=== PATIENT | female | born 1965 | race Caucasian/White ===

== ENCOUNTER → 2020-10-09 13:06 | Outpatient (CLI) | payer MEDICAID, SELFPAY ==
--- NOTE | 2020-10-09 | US_ITS ---
PROCEDURE: MM DIG MAMM BI DX W/CAD Digital Breast Tomosynthesis Included CLINICAL INDICATION: MASTODYNIA Right breast pain COMPARISON: US US BREAST RT COMPLETE from 10/09/2020 US US BREAST LT COMPLETE from 10/09/2020 TECHNIQUE: Standard CC and MLO images and 3D Tomosynthesis was obtained. R2 CAD reviewed. FINDINGS: Scattered fibroglandular tissue. The right breast has an unremarkable appearance. Right breast ultrasound: 2 mm cyst at 1 o'clock near the nipple. At 8 o'clock near the nipple there is a 3 mm area of decreased echogenicity which may be due to a complicated cyst, probably benign. At 9 o'clock near the nipple there is a 6 mm cyst. Suspicious cluster of calcifications noted in the medial aspect of the left breast central 1/3 confirmed with magnification views. Biopsy suggested. There is a benign-appearing 7 mm nodule in the lower left breast anterior 1/3 in the 7 o'clock position. In the lateral aspect of left breast a 3 mm nodular densities noted on the tomogram images probably benign. Left breast ultrasound: At 6 o'clock near the nipple there is a 7 mm cyst. There may be some minimal nodularity of the cyst inferiorly and laterally however, this is questionable. Probably benign. IMPRESSION: Suspicious cluster calcifications in the medial left breast centrally. Stereotactic biopsy suggested. Complicated cysts bilaterally. Recommend six-month sonographic follow-up BI-RAD Category: 4 Suspicious Abnormality-Biopsy Considered FOLLOW-UP: BIO Biopsy Recommended (A letter has been sent to the patient regarding results of the study.) Dictated by: Martell Blas MD 10/12/2020 10:50 Martell Blas MD in [place] 10/12/2020 10:50
== END ==
PROVIDERS: PCP Nurse Practitioner Family; Visit Provider Nurse Practitioner Family
DX: N64.4 Mastodynia (principal)
CPT/HCPCS: 76641; 77062; 77066; G0279

== ENCOUNTER → 2020-10-31 09:34 | Outpatient (CLI) | payer MEDICAID, SELFPAY ==
--- NOTE | 2020-10-31 09:39 | MM_ITS ---
PROCEDURE: MM STEREOTACTIC LOC LT MM CLIP PLACEMENT MM SURGICAL SPECIMEN CLINICAL INDICATION: LT BREAST NEOPLASM Suspicious breast calcifications FINDINGS: Limited focused H&P: Limited physical exam performed by . Lungs: Clear. Heart: Regular rate and rhythm. Mental status: Within normal limits. Informed consent was obtained prior to the procedure. TECHNIQUE: The patient was given 1 mg of Xanax, Lortab 7 point mg, and analgesia and minor sedation. Informed consent was obtained and time-out procedure performed. The patient was placed on the stereotactic table and the calcifications in the left breast at 8 o'clock central 1/3 were localized in the most appropriate projection. The left breast was prepped in the routine manner, with sterile prep and the overlying skin anesthetized. A 3 to 4 mm skin incision was performed and the 9 gauge sorus vacuum-assisted core biopsy needle was advanced to the region of the calcification. Pre- and post fire images were obtained. After adequate positioning relative to the calcifications was ensured, multiple biopsies were obtained in the region of the calcifications specifically. The core biopsies obtained were sent for specimen mammography. After the calcifications were indeed identified on the specimen mammogram, the procedure was terminated. The patient tolerated the procedure well without complications. Specimen was sent for pathologic analysis. Routine follow-up phone call to patient is to be performed as well. A tiny titanium nonferromagnetic MicroMark was positioned through the mammotome needle into the biopsy site. 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 Successful stereotactic vacuum-assisted core biopsy of the left breast calcifications. 2. Successful placement of a titanium metal MicroMark. 3. Pathology demonstrated high-grade DCIS. 4. No noted complications. SPECIMEN RADIOGRAPH: The mammographically evident calcifications from the prior study are currently evident within the Phan dish and within the specimens obtained during mammotome procedure. This is considered an adequate specimen and the procedure was terminated. IMPRESSION: Successful removal of described breast calcifications left breast at 8 o'clock central 1/3 BREAST MAMMOGRAM: Compared to the prior study, the previously noted calcification have been removed except for 1 small calcification posterior to the clip.. A small MicroMark clip was inserted into the region of the calcifications. There is evidence of soft tissue changes in the region of the biopsy was soft tissue gas and edema. 5. Adequate placement of the MicroMark clip postbiopsy. 6. Postbiopsy changes within the breast. Dictated by: Martell Blas MD 11/06/2020 14:16 Martell Blas MD in [place] 11/06/2020 14:16
== END ==
PROVIDERS: PCP Nurse Practitioner Family; Visit Provider Nurse Practitioner Family
DX: D48.62 Neoplasm of uncertain behavior of left breast (principal)
CPT/HCPCS: 19081; 76098; 77065

== ENCOUNTER → 2021-05-16 12:57 | Outpatient (CLI) | payer MEDICAID, SELFPAY ==
--- NOTE | 2021-05-16 13:06 | MM_ITS ---
PROCEDURE INFORMATION: Exam: US Left Breast, Complete MG Bilateral Diagnostic Breast Tomosynthesis Exam date and time: 05/16/2021 1:02 PM Age: 55 years old Clinical indication: Personal history of left breast cancer TECHNIQUE: Imaging protocol: Complete ultrasound of all four quadrants of the Left breast and the retroareolar regions, including ultrasound of the axilla when performed. Bilateral Diagnostic tomosynthesis and 2D mammography including computer-aided detection (CAD) when performed. Unilateral or bilateral exam. COMPARISON: 1. MG MM CLIP PLACEMENT LT 10/31/2020 11:08 AM 2. MG MM DIG MAMM BI DX W/CAD 10/09/2020 1:24 PM 3. US BREAST LT COMPLETE 10/09/2020 2:54 PM FINDINGS: MAMMOGRAPHY: The breast tissue is composed of scattered areas of fibroglandular density. There is no stellate mass, architectural distortion or suspicious microcalcifications in either breast to suggest malignancy. No significant postoperative distortion in the left breast. No skin thickening or axillary adenopathy. ULTRASOUND: Sonographic images of the left breast including the retroareolar region, all 4 quadrants and the axilla do not demonstrate any suspicious solid masses. Minimal subcentimeter cystic changes present. No architectural distortion or acoustical shadowing. No skin thickening or axillary adenopathy. IMPRESSION: No mammographic or sonographic evidence of malignancy. Annual bilateral mammographic screening is recommended unless otherwise clinically indicated. ASSESSMENT: BI-RADS Category 2: Benign
== END ==
PROVIDERS: PCP Nurse Practitioner Family; Visit Provider Internal Medicine Hematology & Oncology
DX: D05.12 Intraductal carcinoma in situ of left breast (principal)
CPT/HCPCS: 76641; 77062; 77066; G0279

== ENCOUNTER 2021-11-28 09:27 | Day surgery (SDC) | payer MEDICAID, SELFPAY ==
[2021-11-28 10:26] VITALS: BP 116/74; PULSE 86; RESP 18; TEMP 36.6; O2SAT 94; BMI 34.1
[2021-11-28 11:02] VITALS: O2SAT 97
--- NOTE | 2021-11-28 11:24 | HMH.SCOPE ---
Procedure: Date: 11/28/21 Patient Date of :: 1965 Procedure Performed:: Screening colonoscopy Indications:: Colon cancer screening Performing Provider:: Adam Good MD Referring Provider:: Kelsey Carlin Sedation:: Propofol Procedure:: After placing the patient in the left lateral decubitus position, the colonoscopy was gently inserted into the rectum and under direct visualization advanced to the cecum which was identified by transillumination in the right lower quadrant, identification of the ileocecal valve, appendiceal orifice, and cecal strap. Color, texture, mucosa, and anatomy of the colon were carefully examined with the scope. Findings:: Anal canal: normal Rectum: normal Sigmoid colon: Large 3+cm adenomatous polyp with broad base, biopsied, location tattooed Descending colon: normal without polyps or inflammatory changes Splenic flexure: normal Transverse colon: 1.5 cm adenomatous polyp, biopsied, tattooed Hepatic flexure: normal Ascending colon: normal without polyps or inflammatory changes Cecum: normal Terminal ileum: not visualized Impression: Large adenomatous polyps of transverse and sigmoid colon not suitable for endoscopic removal Specimens:: Colon polyps Recommendations:: Surgical consultation for removal Repeat colonosocopy ONE year after surgery Complications:: None Estimated blood obtained (mL): 0
[2021-11-28 11:27] VITALS: BP 122/83; PULSE 98; RESP 20; TEMP 36.2; O2SAT 92
--- NOTE | 2021-11-28 11:32 | EXP.ANES.CKL ---
[facility] Medical History (Updated 11/28/21 @ 10:20 by Sejal Anderson RN) Gallbladder disease Migraine Surgical History (Updated 11/28/21 @ 10:20 by Sejal Anderson RN) History of cholecystectomy Family History (Updated 11/28/21 @ 10:21 by Sejal Anderson RN) Father Lung cancer Family history of throat cancer Family/Other Lung cancer Other Family history of cancer Social History (Updated 11/28/21 @ 10:25 by Sejal Anderson RN) Smoking Status: Current some day smoker years smoked: 30 quit status: not considering quitting second hand exposure: No alcohol intake: never substance use type: denies use current occupational status: employed Travel in the last 8 weeks: None caffeine: Yes special debra needs: No agree to transfusion: No do you feel safe at home: Yes victim of physical abuse: No victim of emotional abuse: No victim of sexual abuse: No would you like helpful sources: No [facility] Anesthesia Checklist Patient Identification Patient Identification: Arm Band and Family Structural Data Admitted From: Direct Admit Planned Operative Procedure/s: colonoscopy Consent for Planned Operative Procedure(s) Verified: Yes Verified Documents: Surgical Consent and History and Physical NPO Status Verified Time NPO: 00:00 Additional verifications Patient : No Anesthesia Reactions: No Hx Blood Transfusions: No Blood Transfusion Reaction: No Cephalosporin Allergy: No Previous Colonoscopy: No Airway Assessment C-Spine Mobility Assessed: Yes TMJ Mobility Assessed: Yes Dentition: Edentulous Neurological Assessment Level of Consciousness: Awake, Alert, Appropriate and Follows Commands Hx Seizures: No Numbness or tingling in extremities: No Genitourinary Assessment Voided human resources consultant to O.R.: Yes Anesthesia Plan Anesthesia Risk discussed: Yes ASA Class: II Anesthesia Type: MAC
[2021-11-28 11:37] VITALS: BP 111/54; PULSE 76; RESP 18; O2SAT 94
[2021-11-28 11:47] VITALS: BP 129/77; PULSE 78; RESP 18; O2SAT 97
[2021-11-28 11:57] VITALS: BP 119/73; PULSE 77; RESP 18; O2SAT 97
== END 2021-11-28 12:00 | disposition home or self-care (01) ==
PROVIDERS: PCP Nurse Practitioner Family; Visit Provider Internal Medicine Gastroenterology
PROC: 0DJD8ZZ Inspection of Lower Intestinal Tract, Via Natural or Artificial Opening Endoscopic (ICD-10-PCS; CPT 45378; principal; 2021-11-28 10:30)
DX: Z12.11 Encounter for screening for malignant neoplasm of colon (principal); K63.5 Polyp of colon; Z72.0 Tobacco use
CPT/HCPCS: 45380; J2405

== ENCOUNTER 2022-01-31 12:31 | Day surgery (SDC) | payer MEDICAID, SELFPAY ==
[2022-01-30 09:16] VITALS: BMI 33.9
[2022-01-31 12:48] VITALS: BP 117/79; PULSE 72; RESP 18; TEMP 36.1; O2SAT 95
--- NOTE | 2022-01-31 13:36 | EXP.ANES.CKL ---
[facility] Disclaimer: The information contained in this section may have been updated after the patient was seen, as this information can be updated by other users. Medical History Gallbladder disease Hx of breast cancer Migraine Surgical History H/O tubal ligation History of cholecystectomy History of colonoscopy S/P breast lumpectomy Family History Father Lung cancer Family history of throat cancer Family/Other Lung cancer Other Family history of cancer Social History Smoking Status: Current every day smoker years smoked: 30 quit status: not considering quitting second hand exposure: No alcohol intake: never substance use type: denies use current occupational status: employed Travel in the last 8 weeks: None caffeine: Yes special debra needs: No agree to transfusion: No do you feel safe at home: Yes victim of physical abuse: No victim of emotional abuse: No victim of sexual abuse: No would you like helpful sources: No [facility] Anesthesia Checklist Patient Identification Patient Identification: Arm Band and Verbal (Name & ) Structural Data Admitted From: Home Planned Operative Procedure/s: Colonoscopy Consent for Planned Operative Procedure(s) Verified: Yes Additional verifications Anesthesia Reactions: No Hx Blood Transfusions: No Blood Transfusion Reaction: No Airway Assessment C-Spine Mobility Assessed: Yes TMJ Mobility Assessed: Yes Dentition: Edentulous Neurological Assessment Level of Consciousness: Awake Hx Seizures: No Numbness or tingling in extremities: No Anesthesia Plan Anesthesia Risk discussed: Yes Anesthesia Plan: Verified ASA Class: II Anesthesia Type: MAC
[2022-01-31 14:13] VITALS: O2SAT 95
[2022-01-31 15:05] VITALS: BP 126/71; PULSE 104; RESP 15; TEMP 36.3; O2SAT 91
--- NOTE | 2022-01-31 15:08 | HMH.SCOPE ---
Procedure: Date: 01/31/22 Patient Date of :: 1965 Procedure Performed:: Total colonoscopy to terminal ileum with polypectomy x4 using hot snare Indications:: Patient is a 56-year-old female from [place] referred by Dr. Good for colon resection for polyps.? Her primary care provider is Kelsey Carlin.? She has a history of breast cancer and has undergone radiation in [place].? Her radiation oncologist had advocated a screening colonoscopy.? Colonoscopy was performed on 11/28/2021.? There was noted to be a 15 mm adenomatous appearing polyp in the transverse colon which was biopsied and tattooed and not removed.? There was a large greater than 3 cm adenomatous polyp with a broad base in the sigmoid colon which was biopsied and not removed.? Both of these areas were tattooed.? Pathology on both lesions returned as tubular adenoma. Given the fact that the patient had residual polyps and resection would likely require extended left hemicolectomy with takedown of the splenic flexure plan was made to perform repeat colonoscopy to identify the exact location of the lesions present and attempt removal of at least the transverse colon polyp so as to limit the potential colon resection. Of note, when the patient was clinically evaluated in the office she likely had a trocar site hernia in her epigastrium as an incisional hernia which may need to be addressed at some point. Performing Provider:: Jonathan Jorgensen MD Referring Provider:: Kelsey Carlin Sedation:: MAC sedation Procedure:: Patient history was obtained and appropriate physical examination was performed. Patient's medications and allergies were reviewed. Informed consent was obtained after explaining the benefits, alternatives, and risks of the procedure including, but not limited to, bleeding, perforation, missed lesions, and adverse reaction to anesthesia medications. Patient was transported to endoscopy procedure room. Patient was connected to monitoring devices. Throughout the procedure the patient's blood pressure, pulse, and oxygen saturations were monitored continuously. Patient identification and planned procedure were verified by the staff. Patient was positioned in lateral decubitus position. Digital anorectal exam was performed. Variable stiffness Olympus colonoscope was inserted and advanced under direct visualization to the cecum. Adequacy of the colonic preparation was noted. The colonoscope was advanced a short distance into the terminal ileum. The colonoscope was then slowly withdrawn while carefully examining the color, texture, anatomy, and integrity of the mucosoa circumferentially. Within the rectum retroflexion was performed. Colonoscope was then withdrawn. Findings:: The colonoscope was advanced to the cecum and into the ileocecal valve which appeared grossly normal. Careful surveillance was carried out as the colonoscope was withdrawn. In the mid to distal transverse colon there was noted to be a sessile ridge polyp where the area was marked with Denice ink adjacent to this. This polyp was somewhat elongated and likely measured up to 15 mm. This was grasped with the hot snare in its entirety and able to be removed with hot snare. Ultimately it was retrieved with the Dodson net in its entirety intact as the colonoscope was withdrawn. The colonoscope was reinserted to this location and a small amount of additional Denice ink was injected immediately at the polypectomy site and adjacent to this a Hemoclip was deployed to mikaela the area if she needed imaging. Colonoscope was then slowly withdrawn through the left colon and the sigmoid polyp was noted at approximately 25 cm. With some manipulation of the colonoscope ultimately this was able to be grasped in its entirety at its pedunculated base with the hot snare. Hot snare polypectomy was performed. While applying suction to the polyp and the colonoscope was withdrawn retrieving the polyp intact and in its entirety. [place]
[2022-01-31 15:15] VITALS: BP 119/82; PULSE 97; RESP 17; O2SAT 95
[2022-01-31 15:25] VITALS: BP 115/72; PULSE 95; RESP 18; O2SAT 95
[2022-01-31 15:40] VITALS: BP 122/79; PULSE 90; RESP 16; O2SAT 95
--- NOTE | 2022-01-31 16:13 | SUR.PHASEII ---
pt c/o headache, informed her of not having orders, pt HERMINIA
== END 2022-01-31 15:40 | disposition home or self-care (01) ==
PROVIDERS: PCP Nurse Practitioner Family; Visit Provider Surgery
PROC: 0DJD8ZZ Inspection of Lower Intestinal Tract, Via Natural or Artificial Opening Endoscopic (ICD-10-PCS; CPT 45385; principal; 2022-01-31 13:30)
DX: D12.3 Benign neoplasm of transverse colon (principal); D12.5 Benign neoplasm of sigmoid colon; Z86.010 Personal history of colon polyps; F17.210 Nicotine dependence, cigarettes, uncomplicated
CPT/HCPCS: 45385; J2704

== ENCOUNTER → 2022-05-20 12:48 | Outpatient (CLI) | payer MEDICAID, SELFPAY ==
--- NOTE | 2022-05-20 12:54 | MM_ITS ---
PROCEDURE INFORMATION: Exam: MG Bilateral Screening 3D Mammography Exam date and time: 05/20/2022 12:55 PM Age: 56 years old Clinical indication: Screening examination; personal history of left breast cancer TECHNIQUE: Imaging protocol: Bilateral Screening tomosynthesis and 2D mammography including computer-aided detection (CAD) when performed. COMPARISON: 1. MG MM DIG MAMM BI DX W/CAD 05/16/2021 1:02 PM 2. MG MM CLIP PLACEMENT LT 10/31/2020 11:08 AM FINDINGS: MAMMOGRAPHY: Breast composition: There are scattered areas of fibroglandular density. Mass: None. Architectural distortion: None. Calcifications: No suspicious calcifications. Asymmetric density: None. Skin thickening: None. Axillary adenopathy: None. Other findings: No significant postoperative change IMPRESSION: No mammographic evidence of malignancy. Annual screening is recommended unless otherwise clinically indicated. ASSESSMENT: BI-RADS Category 1: Negative
== END ==
PROVIDERS: PCP Nurse Practitioner Family; Visit Provider Nurse Practitioner Family
DX: Z12.31 Encounter for screening mammogram for malignant neoplasm of breast (principal)
CPT/HCPCS: 77063; 77067

== ENCOUNTER → 2022-06-05 12:28 | Outpatient (CLI) | payer MEDICAID, SELFPAY ==
--- NOTE | 2022-06-05 12:33 | US_ITS ---
FINAL REPORT TECHNIQUE: Real-time grayscale and color ultrasound of the thyroid was performed. CLINICAL HISTORY: Goiter, fullness in right neck COMPARISON: None FINDINGS: The thyroid gland measures 5.3 cm on the right and 5.0 cm on the left. The isthmus measures 4 mm. The thyroid gland is somewhat enlarged. Nodules: There are numerous small nodules in the thyroid bilaterally. Right 6 x 6 x 5 mm cystic TR 1 nodule. Right 8 x 7 x 6 mm cystic and solid isoechoic TR 2 nodule. Right 9 x 10 x 6 mm hyperechoic solid TR 3 nodule. Left 8 x 6 x 7 mm cystic TR 1 nodule. IMPRESSION: Multiple small thyroid nodules with no follow-up recommended. Mildly enlarged thyroid gland, favor goiter. Reviewed, Interpreted and Dictated by Jonathan Gross III, MD Transcribed by Viola Bianchi Authenticated and . [facility]
--- NOTE | 2022-06-05 12:38 | XR_ITS ---
FINAL REPORT CLINICAL HISTORY: RT WRIST PAIN FINDINGS: Right wrist Three views were obtained. There is no acute fracture or dislocation. There are moderate degenerative changes at the radial aspect of the wrist. There is chronic calcification distal to the ulnar styloid process. IMPRESSION: Degenerative and chronic appearing findings. Reviewed, Interpreted and Dictated by Jonathan Gross III, MD Transcribed by Louann Espinoza Authenticated and [facility]
== END ==
PROVIDERS: PCP Nurse Practitioner Family; Visit Provider Nurse Practitioner Family
DX: E04.9 Nontoxic goiter, unspecified (principal); M25.531 Pain in right wrist
CPT/HCPCS: 73110; 76536

== ENCOUNTER 2022-10-18 19:12 | Emergency (ER) | payer MEDICAID, SELFPAY ==
[2022-10-18 19:30] VITALS: BP 143/90; PULSE 92; RESP 20; TEMP 36.7; O2SAT 97; BMI 34.6
[2022-10-18 19:47] LABS: UTC Strep Screen (Rapid) Negative (Negative)
--- NOTE | 2022-10-18 20:00 | EXP.UTC ---
Discharge Plan Disposition Patient Disposition: Home, Self-Care Condition: Good Prescriptions Prescriptions: New amoxicillin 500 mg capsule 500 mg PO TID 10 Days Qty: 30 0RF No Action anastrozole 1 mg tablet 1 mg PO DAILY Referrals Follow up/Referrals: Kelsey Carlin [Primary Care Provider] - See instructions Activity Restrictions/Add. Instructions Additional Instructions/Restrictions: *Monitor Temp, Over the counter Motrin or Tylenol as directed/as needed Tylenol every 4 hours and Motrin every 6 hours (as long as your family doctor has told you that you can take it) for fever or pain. and straight to ER if unable to lower temp less than 101.0 after medication given *Warm salt water gargles may help to soothe the throat *Throat Lozenges? *Warm fluids like tea with honey may help to soothe the throat? *Sleep elevated *Humidifier/Vaporizer *Your throat swab was sent for culture. Those results are typically sent to your primary care. Be sure to follow up in 2-3 days with your family doctor/primary care physician if no improvement so they can review those result and treat if necessary. If you don?t have a primary care doctor, I recommend you get one but in the mean time, you will have to return to a walk in clinic Follow up IMMEDIATELY for new or worsening symptoms or no Noticeable improvement over the next 48-72 hours. 911 for difficulty breathing or swallowing Clinical Impressions Clinical Impression: Otitis media Qualifiers: Otitis media type: unspecified Laterality: left Qualified Code(s): H66.92 - Otitis media, unspecified, left ear Instructions Patient Instructions: Middle Ear Infection, Amoxicillin Discharge ED Provider: Hattie Daugherty [facility] HPI General Stated complaint: sore throat, ear ache Mode of Arrival: Ambulatory Source of Information: Patient Limitations: No Limitations Time Seen by Provider: 10/18/22 20:00 Description of Symptoms (Recalled from Triage Doc. by RN): PATIENT C/O SORE THROAT AND EAR PAIN THAT STARTED TODAY HEENT Symptoms (Recalled from RN notes): Yes Resp Symptoms (Recalled from RN notes): No Skin Symptoms (Recalled from RN notes): No MS Symptoms (Recalled from RN notes): No Functional Status (Recalled from RN notes): WNL History of Present Illness Provider Complaint: Patient states that she has been having sore scratchy throat and pain in her left ear that has got worse today States this evening her throat is feeling better but her ear is still throbbing so she came in to get it checked Related Data Home Medications Medication Instructions Recorded Confirmed anastrozole 1 mg tablet 1 mg PO DAILY . 12/10/21 12/10/21 Previous Rx's Medication Instructions Recorded amoxicillin 500 mg capsule 500 mg PO TID 10 days #30 caps 10/18/22 Allergies Allergy/AdvReac Type Severity Reaction Status Date / Time No Known Allergies Allergy Verified 12/10/21 09:52 Worker's Comp Is this a Worker's Comp case?: No [facility] Disclaimer: The information contained in this section may have been updated after the patient was seen, as this information can be updated by other users. Medical History Gallbladder disease Hx of breast cancer Migraine Surgical History H/O tubal ligation History of cholecystectomy History of colonoscopy S/P breast lumpectomy Family History Father Lung cancer Family history of throat cancer Family/Other Lung cancer Other Family history of cancer Social History Smoking Status: Current every day smoker years smoked: 30 quit status: not considering quitting second hand exposure: No alcohol intake: never substance use type: denies use current occupational status: [employer]
[2022-10-18 20:15] VITALS: BP 143/90; PULSE 92; RESP 20; TEMP 36.7; O2SAT 97
== END 2022-10-18 20:22 | disposition home or self-care (01) ==
PROVIDERS: Emergency Provider Nurse Practitioner; PCP Nurse Practitioner Family
DX: H66.92 Otitis media, unspecified, left ear (principal); J02.9 Acute pharyngitis, unspecified; F17.210 Nicotine dependence, cigarettes, uncomplicated
CPT/HCPCS: 87880; 99204; 99212; G0463

== ENCOUNTER → 2023-01-28 14:39 | Outpatient (CLI) | payer MEDICAID, SELFPAY ==
--- NOTE | 2023-01-28 14:43 | CT_ITS ---
FINAL REPORT TECHNIQUE: Axial CT images of the chest were obtained without contrast. Low-dose protocol was utilized. This study was performed with techniques to keep radiation doses as low as reasonably achievable (ALARA). Individualized dose reduction techniques using automated exposure control or adjustment of mA and/or kV according to the patient's size were employed. CLINICAL HISTORY: H/O TOBACCO USE CURRENT SMOKER, 1 PPD X 25 YEARS COMPARISON: None FINDINGS: CT CHEST WITHOUT, LOW DOSE SCREENING CT Di Vol: 2.90 mGy DLP: 104.73 mGy*cm There is no significant mediastinal mass or adenopathy. The heart size is normal. There is no pleural or pericardial effusion. The lung windows show no suspicious mass or nodule. There are bilateral calcified granulomas. There is scarring in the lower lobes bilaterally and along the minor fissure. Limited images of the upper abdomen demonstrate no acute findings. IMPRESSION: LR Category 1: 12 month follow-up low-dose chest CT is recommended. Reviewed, Interpreted and Dictated by Juancho Castro MD Transcribed by Viola Bianchi Authenticated and . [facility]
== END ==
PROVIDERS: PCP Nurse Practitioner Family; Visit Provider Internal Medicine
DX: F17.210 Nicotine dependence, cigarettes, uncomplicated (principal)
CPT/HCPCS: 71271

== ENCOUNTER 2023-04-28 11:17 | Outpatient (CLI) | payer MEDICAID, SELFPAY ==
[2023-04-28 11:45] LABS: Basophils # 0.1 K/mm3 (0-0.2); Basophils % 0.7 % (0.1-2.0); Eosinophils # 0.2 K/mm3 (0.0-0.4); Eosinophils % 1.9 % (0.1-12.0); Hematocrit 45.2 % (37.0-47.0); Hemoglobin 14.7 g/dL (12.2-16.2); Lymphocytes # 2.6 K/mm3 (0.7-4.5); Mean Corpuscular HGB Conc 32.6 g/dL (31.8-35.4); Mean Corpuscular Hemoglobin 31.1 pg (27.0-31.2); Mean Corpuscular Volume 95.3 fl (81-99); Mean Platelet Volume 8.6 fl (7.4-10.4); Monocytes # 0.5 K/mm3 (0.1-1.0); Monocytes % 5.3 % (1.7-9.3); Platelet Count 275 K/mm3 (142-424); Red Blood Count 4.74 M/mm3 (4.20-5.40); Red Cell Distribution Width 13.5 % (11.5-17.5); White Blood Count 9.3 K/mm3 (4.8-10.8)
[2023-04-28 12:29] LABS: Chloride 106 mmol/L (98-107); Potassium 4.6 mmoL/L (3.5-5.1); Sodium 141 mmol/L (136-145)
[2023-04-28 12:32] LABS: Alanine Aminotransferase 27 U/L (12-78); Albumin Level 4.2 g/dl (3.5-5.0); Albumin/Globulin Ratio 1.8 (1.1-1.8); Alkaline Phosphatase 74 U/L (38-126); Anion Gap 11.6 mEq/L (5-15); Aspartate Amino Transferase 27 U/L (14-36); Bilirubin,Total 0.6 mg/dl (0.2-1.3); Blood Urea Nitrogen 15 mg/dl (7-17); Calcium 9.5 mg/dl (8.4-10.2); Carbon Dioxide 28 mmol/L (22.0-30.0); Estimated Glomerular Filt Rate 104 ml/min (>60); GFR (African American) 126 ML/MIN (>60); Globulin 2.4 g/dL (1.3-3.2); Glucose 99 mg/dl (74-100); Total Protein,Serum 6.6 g/dl (6.3-8.2)
== END 2023-04-28 23:59 ==
LOC: LAB 11:18
PROVIDERS: PCP Nurse Practitioner Family; Visit Provider Surgery
DX: K43.2 Incisional hernia without obstruction or gangrene (principal)
CPT/HCPCS: 36415; 80053; 85025

== ENCOUNTER 2024-01-04 16:17 | Emergency (ER) | payer MEDICAID, SELFPAY ==
[2024-01-04] VITALS (7 sets, daily range): BP systolic 108–140; BP diastolic 65–90; PULSE 74–103; RESP 16–18; TEMP 36.7; O2SAT 93–99; BMI 36.1
--- NOTE | 2024-01-04 17:08 | HMH.EDGENADL ---
Discharge Plan Disposition Patient Disposition: Home, Self-Care Condition: Good Referrals Follow up/Referrals: Kelsey Carlin [Primary Care Provider] - See instructions Activity Restrictions/Add. Instructions Additional Instructions/Restrictions: For no improvement or continuing symptoms follow-up with your PCP. For worsening signs or symptoms he may return to the ER as needed. Clinical Impressions Clinical Impression: Anterior chest wall pain Instructions Patient Instructions: DI for Acute Abdominal Pain Print Language Print Language: Palestinian Discharge ED Provider: Hadley Wetzel General Adult HPI <AGUS Sheldon - Last Filed: 01/04/24 22:57> General Chief complaint: Abdominal Pain Stated complaint: upper stomach pain,no N/V Time Seen by Provider: 01/04/24 17:00 History of Present Illness HPI narrative: Patient presents for evaluation of anterior chest wall pain. Patient states that she began hurting intermittently on Thursday in her left-sided anterior low chest wall. She denies any trauma fever chills hemoptysis hematochezia melena nausea vomiting diarrhea constipation. No aggravating or relieving factors. Related Data Allergies Allergy/AdvReac Type Severity Reaction Status Date / Time No Known Allergies Allergy Verified 01/04/24 17:38 PFSH <AGUS Sheldon - Last Filed: 01/04/24 22:57> [facility] Disclaimer: The information contained in this section may have been updated after the patient was seen, as this information can be updated by other users. Medical History Gallbladder disease Hx of breast cancer Migraine Surgical History H/O tubal ligation History of cholecystectomy History of colonoscopy S/P breast lumpectomy Family History Father Lung cancer Family history of throat cancer Family/Other Lung cancer Other Family history of cancer Social History Smoking Status: Current every day smoker years smoked: 30 quit status: not considering quitting second hand exposure: No alcohol intake: never substance use type: denies use current occupational status: employed Travel in the last 8 weeks: None caffeine: Yes special debra needs: No agree to transfusion: No do you feel safe at home: Yes victim of physical abuse: No victim of emotional abuse: No victim of sexual abuse: No would you like helpful sources: No <AGUS Sheldon - Last Filed: 01/04/24 22:57> ROS Obtained: Yes Systems reviewed as appropriate & no additional complaints except as documented Physical Exam <AGUS Sheldon - Last Filed: 01/04/24 22:57> General General appearance: alert and in no apparent distress Respiratory Respiratory exam: Present normal lung sounds bilaterally Cardiovascular Cardiovascular exam: Present regular rate Neurological Exam Neurological exam: Present alert and oriented X3 Medical Decision Making <AGUS Sheldon - Last Filed: 01/04/24 22:57> Medical Records Medical records reviewed: Yes I reviewed the patient's medical records. Screening: Per USPSTF and CDC recommendations, given the prevalence of disease in our region, it is our hospital?s policy to screen for HIV and viral Hepatitis for all patients aged 18 and over and those with ongoing risk factors. Jared Inquiry Pt receiving controlled substance: No Vital Signs: 01/04/24 16:19 01/04/24 18:19 01/04/24 18:30 Temperature 98.1 F Temperature Source Oral Pulse Rate 95 H 96 H Pulse Rate [Right Radial] 103 H Respiratory Rate 18 18 16 Blood Pressure 122/90 118/80 Blood Pressure [Right Arm] 137/74 Blood Pressure Mean 94 89 Blood Pressure Mean [Right Arm] 95 Blood Pressure Source [Right Arm] Automatic Cuff Blood Pressure Position [Right Arm] Sitting 02 Sat by Pulse Oximetry 98 95 96 Oxygen Delivery Method Room Air 01/04/24 19:00 01/04/24 19:24 01/04/24 19:30 Temperature Temperature Source Pulse Rate 92 H 89 93 H Pulse Rate [Right Radial] Respiratory Rate 16 Blood Pressure 116/77 115/79 108/75 L Blood Pressure [Right Arm] Blood Pressure Mean 89 89 85 Blood Pressure Mean [Right Arm] Blood Pressure Source [Right Arm] Blood Pressure Position [Right Arm] 02 Sat by Pulse Oximetry 95 93 L 93 L Oxygen Delivery Method 01/04/24 22:56 Temperature 98.0 F Temperature Source Pulse Rate 74 Pulse Rate [Right Radial] Respiratory Rate 18 Blood Pressure 140/65 Blood Pressure [Right Arm] Blood Pressure Mean Blood Pressure Mean [Right Arm] Blood Pressure Source [Right Arm] Blood Pressure Position [Right Arm] 02 Sat by Pulse Oximetry Oxygen Delivery Method Room Air Lab Data Lab results reviewed: Yes I reviewed the patient's lab results. Lab Results 01/04/24 20:01: WBC 12.9 H, RBC 4.67, Hgb 14.1, Hct 42.7, MCV 91.4, MCH 30.1, MCHC 33.0, RDW 13.4, Plt Count 288, MPV 8.1, Neut % (Auto) 60.5, Lymph % (Auto) 31.4, [place] % (Auto) 4.9, Eos % (Auto) 2.5, Baso % (Auto) 0.7, Neut # (Auto) 7.8, Lymph # (Auto) 4.0, [place] # (Auto) 0.6, Eos # (Auto) 0.3, Baso # (Auto) 0.1, Sodium 140, Potassium 3.9, Chloride 106, Carbon Dioxide 25, Anion Gap 12.9, BUN 18 H, Creatinine 0.60, Estimated Creat Clear 163, Estimated GFR 103, Est GFR ( Amer) 125, Glucose 98, Calcium 9.0, Total Bilirubin 0.6, AST 37 H, ALT 33, Alkaline Phosphatase 69, Total Protein 6.7, Albumin 4.2, Globulin 2.5, Albumin/Globulin Ratio 1.7, Lipase 115 01/04/24 20:01 01/04/24 20:01 Orders (Tests/Meds): ED MEDICATIONS Discontinued Medications Generic Name Dose Route Start Last Admin Trade Name Margarita PRN Reason Stop Dose Admin Acetaminophen 1,000 mg 01/04/24 17:12 01/04/24 17:25 Acetaminophen 500mg Tab PO 01/04/24 17:13 1,000 mg ONCE ONE Administration Ibuprofen 800 mg 01/04/24 17:12 01/04/24 17:25 Ibuprofen 400 Mg Tablet PO 01/04/24 17:13 800 mg ONCE ONE Administration Iopamidol 70 ml 01/04/24 21:31 01/04/24 21:32 Iopamidol-370 (76%);100ml Bottle IV 01/04/24 21:32 70 ml ONCE ONE Administration Lidocaine 1 each 01/04/24 17:12 01/04/24 17:25 Lidocaine 5% Transdermal Patch TP 01/04/24 17:13 1 each ONCE ONE Administration Sodium Chloride 50 ml 01/04/24 21:31 01/04/24 21:32 0.9 % Sodium Chloride 50 Ml Vial IV 01/04/24 21:32 50 ml ONCE ONE Administration Sodium Chloride 10 ml 01/04/24 21:31 01/04/24 21:32 Sodium Chloride 0.9% 10ml Syr (Rad Only) IV 01/04/24 21:32 10 ml ONCE ONE Administration ORDERS Category Date Time Status CT abdomen pelvis w con Stat Cat Scan 01/04/24 18:[address] angio chest PE protocol Stat Cat Scan 01/04/24 18:45 Completed XR ribs LT min 3V w CXR1V Stat Exams 01/04/24 17:12 Completed CBC w/Auto Diff [Complete Blood Count Auto Diff] Stat Lab 01/04/24 20:01 Completed CMP [Comprehensive Metabolic Panel] Stat Lab 01/04/24 20:01 Completed Lipase Stat Lab 01/04/24 20:01 Completed Medical Decision Narrative: In summary patient is a 8-year-old female who presents to the emergency department for evaluation of left-sided low anterior chest wall pain. Patient is hemodynamically stable upon arrival, [place]. Physical exam is remarkable for tenderness to palpation in the lower left anterior thoracicoabdominal wall over the costal margins without evidence of trauma deformity. Breath sounds are clear and equal bilaterally to the bases. There is no rebound no guarding no rigidity in the abdomen with normal bowel sounds. . Differential diagnosis includes musculoskeletal injury versus muscle spasm versus costochondral separation versus pneumonia etc. Initial workup will be conducted with hematologic labs CT scan chest abdomen pelvis. Initial interventions include Tylenol ibuprofen Lidoderm patch. Initial workup reviewed by me shows her hematologic labs are nonactionable and all of her imaging via my informal to rotation shows no acute processes. Upon repeat evaluation patient reported no improvement with initial intervention. Given this we have essentially ruled out any serious or life-threatening condition and while we are unable to determine specifically what is causing her pain we have ruled out most concerning possibilities. This patient is appropriate for discharge with strict return precautions. <Hadley Wetzel MD - Last Filed: 01/04/24 22:59> Vital Signs: 01/04/24 16:19 01/04/24 18:19 01/04/24 18:30 Temperature 98.1 F Temperature Source Oral Pulse Rate 95 H 96 H Pulse Rate [Right Radial] 103 H Respiratory Rate 18 18 16 Blood Pressure 122/90 118/80 Blood Pressure [Right Arm] 137/74 Blood Pressure Mean 94 89 Blood Pressure Mean [Right Arm] 95 Blood Pressure Source [Right Arm] Automatic Cuff Blood Pressure Position [Right Arm] Sitting 02 Sat by Pulse Oximetry 98 95 96 Oxygen Delivery Method Room Air 01/04/24 19:00 01/04/24 19:24 01/04/24 19:30 Temperature Temperature Source Pulse Rate 92 H 89 93 H Pulse Rate [Right Radial] Respiratory Rate 16 Blood Pressure 116/77 115/79 108/75 L Blood Pressure [Right Arm] Blood Pressure Mean 89 89 85 Blood Pressure Mean [Right Arm] Blood Pressure Source [Right Arm] Blood Pressure Position [Right Arm] 02 Sat by Pulse Oximetry 95 93 L 93 L Oxygen Delivery Method 01/04/24 22:56 Temperature 98.0 F Temperature Source Pulse Rate 74 Pulse Rate [Right Radial] Respiratory Rate 18 Blood Pressure 140/65 Blood Pressure [Right Arm] Blood Pressure Mean Blood Pressure Mean [Right Arm] Blood Pressure Source [Right Arm] Blood Pressure Position [Right Arm] 02 Sat by Pulse Oximetry Oxygen Delivery Method Room Air Lab Data Lab Results 01/04/24 20:01: WBC 12.9 H, RBC 4.67, Hgb 14.1, Hct 42.7, MCV 91.4, MCH 30.1, MCHC 33.0, RDW 13.4, Plt Count 288, MPV 8.1, Neut % (Auto) 60.5, Lymph % (Auto) 31.4, [place] % (Auto) 4.9, Eos % (Auto) 2.5, Baso % (Auto) 0.7, Neut # (Auto) 7.8, Lymph # (Auto) 4.0, [place] # (Auto) 0.6, Eos # (Auto) 0.3, Baso # (Auto) 0.1, Sodium 140, Potassium 3.9, Chloride 106, Carbon Dioxide 25, Anion Gap 12.9, BUN 18 H, Creatinine 0.60, Estimated Creat Clear 163, Estimated GFR 103, Est GFR ( Amer) 125, Glucose 98, Calcium 9.0, Total Bilirubin 0.6, AST 37 H, ALT 33, Alkaline Phosphatase 69, Total Protein 6.7, Albumin 4.2, Globulin 2.5, Albumin/Globulin Ratio 1.7, Lipase 115 Orders (Tests/Meds): ED MEDICATIONS Discontinued Medications Generic Name Dose Route Start Last Admin Trade Name Margarita PRN Reason Stop Dose Admin Acetaminophen 1,000 mg 01/04/24 17:12 01/04/24 17:25 Acetaminophen 500mg Tab PO 01/04/24 17:13 1,000 mg ONCE ONE Administration Ibuprofen 800 mg 01/04/24 17:12 01/04/24 17:25 Ibuprofen 400 Mg Tablet PO 01/04/24 17:13 800 mg ONCE ONE Administration Iopamidol 70 ml 01/04/24 21:31 01/04/24 21:32 Iopamidol-370 (76%);100ml Bottle IV 01/04/24 21:32 70 ml ONCE ONE Administration Lidocaine 1 each 01/04/24 17:12 01/04/24 17:25 Lidocaine 5% Transdermal Patch TP 01/04/24 17:13 1 each ONCE ONE Administration Sodium Chloride 50 ml 01/04/24 21:31 01/04/24 21:32 0.9 % Sodium Chloride 50 Ml Vial IV 01/04/24 21:32 50 ml ONCE ONE Administration Sodium Chloride 10 ml 01/04/24 21:31 01/04/24 21:32 Sodium Chloride 0.9% 10ml Syr (Rad Only) IV 01/04/24 21:32 10 ml ONCE ONE Administration ORDERS Category Date Time Status CT abdomen pelvis w con Stat Cat Scan 01/04/24 18:[address] angio chest PE protocol Stat Cat Scan 01/04/24 18:45 Completed XR ribs LT min 3V w CXR1V Stat Exams 01/04/24 17:12 Completed CBC w/Auto Diff [Complete Blood Count Auto Diff] Stat Lab 01/04/24 20:01 Completed CMP [Comprehensive Metabolic Panel] Stat Lab 01/04/24 20:01 Completed Lipase Stat Lab 01/04/24 20:01 Completed Medical Decision Narrative: In summary patient is a 8-year-old female who presents to the emergency department for evaluation of left-sided low anterior chest wall pain. Patient is hemodynamically stable upon arrival, no acute distress. Physical exam is remarkable for tenderness to palpation in the lower left anterior thoracicoabdominal wall over the costal margins without evidence of trauma deformity. Breath sounds are clear and equal bilaterally to the bases. There is no rebound no guarding no rigidity in the abdomen with normal bowel sounds. . Differential diagnosis includes musculoskeletal injury versus muscle spasm versus costochondral separation versus pneumonia etc. Initial workup will be conducted with hematologic labs CT scan chest abdomen pelvis. Initial interventions include Tylenol ibuprofen Lidoderm patch. Initial workup reviewed by me shows her hematologic labs are nonactionable and all of her imaging via my informal to rotation shows no acute processes. Upon repeat evaluation patient reported no improvement with initial intervention. Given this we have essentially ruled out any serious or life-threatening condition and while we are unable to determine specifically what is causing her pain we have ruled out most concerning possibilities. This patient is appropriate for discharge with strict return precautions. I was consulted by the MITCHELL, and we discussed the complexity of the problems being addressed. I approved the treatment and management plan for this patient's care in the Emergency Department, thus performing a substantive portion of the medical decision making. Hadley Wetzel MD Critical Care <AGUS Sheldon - Last Filed: 01/04/24 22:57> Critical Care Time Critical Care Time: No
--- NOTE | 2024-01-04 17:12 | XR_ITS ---
PROCEDURE INFORMATION: Exam: XR Left Ribs with PA Chest Exam date and time: 01/04/2024 5:14 PM Age: 58 years old Clinical indication: Chest wall pain; Left; Additional info: Left lower anterior chest wall pain TECHNIQUE: Imaging protocol: Radiologic exam of the left ribs with PA chest. Views: 3 views COMPARISON: CT LUNG SCREENING 01/28/2023 2:51 PM FINDINGS: Lungs: Right mid lung subsegmental atelectasis. Pleural spaces: Unremarkable. No pleural effusion. No pneumothorax. Heart/Mediastinum: Unremarkable. No cardiomegaly. Bones/joints: Unremarkable. Other findings: No acute traumatic abnormality identified. IMPRESSION: No acute traumatic abnormality identified.
[2024-01-04] MEDS: IBUPROFEN 400 MG TABLET 800 MG PO (17:25)
[2024-01-04] MEDS: LIDOCAINE 5% TRANSDERMAL PATCH 1 EACH TP (17:25)
[2024-01-04] MEDS: ACETAMINOPHEN 500MG TAB 1000 MG PO (17:25)
--- NOTE | 2024-01-04 18:19 | PC.NURSE ---
I rounded on the pt and explained we are waiting on the official read for her xray. no needs voiced, no new complaints. call martell in reach.
--- NOTE | 2024-01-04 18:45 | CT_ITS ---
PROCEDURE INFORMATION: Exam: CTA Chest With Contrast Exam date and time: 01/04/2024 9:14 PM Age: 58 years old Clinical indication: Other: Thoracicoabdominal pain TECHNIQUE: Imaging protocol: Computed tomographic angiography of the chest with contrast. Exam focused on the arteries. 3D rendering (Not supervised by radiologist): MIP and/or 3D reconstructed images were created by the technologist. Radiation optimization: All CT scans at this facility use at least one of these dose optimization techniques: automated exposure control; mA and/or kV adjustment per patient size (includes targeted exams where dose is matched to clinical indication); or iterative reconstruction. Contrast material: ISO 370; Contrast volume: 70 ml; Contrast route: INTRAVENOUS (IV); COMPARISON: CT LUNG SCREENING 01/28/2023 2:51 PM FINDINGS: Pulmonary arteries: Normal. No pulmonary emboli. Aorta: Unremarkable. No aortic aneurysm. No aortic dissection. Lungs: Bibasilar subsegmental atelectasis. Pleural spaces: No CTA evidence of aortic dissection. Heart: Unremarkable. No cardiomegaly. No pericardial effusion. Lymph nodes: Unremarkable. No enlarged lymph nodes. Bones/joints: Unremarkable. No acute fracture. Soft tissues: Unremarkable. IMPRESSION: 1. No CTA evidence of aortic dissection. 2. Bibasilar subsegmental atelectasis.
--- NOTE | 2024-01-04 18:45 | CT_ITS ---
PROCEDURE INFORMATION: Exam: CT Abdomen And Pelvis With Contrast Exam date and time: 01/04/2024 9:14 PM Age: 58 years old Clinical indication: Other: Thoracicoabdominal pain TECHNIQUE: Imaging protocol: Computed tomography of the abdomen and pelvis with contrast. Radiation optimization: All CT scans at this facility use at least one of these dose optimization techniques: automated exposure control; mA and/or kV adjustment per patient size (includes targeted exams where dose is matched to clinical indication); or iterative reconstruction. Contrast material: ISOVUE; Contrast volume: 70 ml; Contrast route: IV; COMPARISON: CT ABDOMEN PELVIS W CON 01/04/2024 9:14 PM FINDINGS: Tubes, catheters and devices: None noted. Lungs: Lung bases appear clear. Heart: No significant coronary calcifications. No cardiomegaly. No significant pericardial effusion. Liver: Normal. No mass. Gallbladder and biliary ducts: Cholecystectomy. No ductal dilation. Pancreas: Normal. No ductal dilation. Spleen: Normal. No splenomegaly. Adrenal glands: Normal. No mass. Kidneys and ureters: Normal. No hydronephrosis. Stomach and bowel: Unremarkable. No obstruction. No mucosal thickening. Appendix: No evidence of appendicitis. Intraperitoneal space: Unremarkable. No free air. No significant fluid collection. Retroperitoneal space: No significant retroperitoneal inflammatory changes are noted. Vasculature: Unremarkable. No abdominal aortic aneurysm. Lymph nodes: Unremarkable. No enlarged lymph nodes. Urinary bladder: Unremarkable as visualized. Reproductive: Unremarkable as visualized. Bones/joints: Unremarkable. No acute fracture. Soft tissues: Unremarkable. IMPRESSION: 1. No acute findings. 2. No CTA evidence of aortic dissection.
[2024-01-04 20:11] LABS: Basophils # 0.1 K/mm3 (0-0.2); Basophils % 0.7 % (0.1-2.0); Eosinophils # 0.3 K/mm3 (0.0-0.4); Eosinophils % 2.5 % (0.1-12.0); Hematocrit 42.7 % (37.0-47.0); Hemoglobin 14.1 g/dL (12.2-16.2); Lymphocytes % 31.4 % (10-50); Mean Corpuscular Hemoglobin 30.1 pg (27.0-31.2); Mean Corpuscular Volume 91.4 fl (81-99); Mean Platelet Volume 8.1 fl (7.4-10.4); Monocytes # 0.6 K/mm3 (0.1-1.0); Monocytes % 4.9 % (1.7-9.3); Neutrophils # 7.8 K/mm3 (1.8-7.8); Neutrophils % 60.5 % (37.0-80.0); Platelet Count 288 K/mm3 (142-424); Red Blood Count 4.67 M/mm3 (4.20-5.40); Red Cell Distribution Width 13.4 % (11.5-17.5); White Blood Count 12.9 K/mm3 (4.8-10.8)
[2024-01-04 20:46] LABS: Alanine Aminotransferase 33 U/L (12-78); Albumin Level 4.2 g/dl (3.5-5.0); Albumin/Globulin Ratio 1.7 (1.1-1.8); Alkaline Phosphatase 69 U/L (38-126); Anion Gap 12.9 mEq/L (5-15); Aspartate Amino Transferase 37 U/L (14-36); Bilirubin,Total 0.6 mg/dl (0.2-1.3); Blood Urea Nitrogen 18 mg/dl (7-17); Carbon Dioxide 25 mmol/L (22.0-30.0); Chloride 106 mmol/L (98-107); Creatinine Clearance Estimated 163 mL/min (50-200); Estimated Glomerular Filt Rate 103 ml/min (>60); GFR (African American) 125 ML/MIN (>60); Globulin 2.5 g/dL (1.3-3.2); Glucose 98 mg/dl (74-100); Potassium 3.9 mmoL/L (3.5-5.1); Sodium 140 mmol/L (136-145); Total Protein,Serum 6.7 g/dl (6.3-8.2)
[2024-01-04 20:47] LABS: Lipase 115 U/L (23-300)
[2024-01-04] MEDS: SODIUM CHLORIDE 0.9% 10ML SYR (RAD ONLY) 10 ML IV (21:32)
[2024-01-04] MEDS: 0.9 % SODIUM CHLORIDE 50 ML VIAL IV (21:32)
[2024-01-04] MEDS: IOPAMIDOL-370 (76%);100ML BOTTLE 70 ML IV (21:32)
== END 2024-01-04 22:57 | disposition home or self-care (01) ==
PROVIDERS: Physician Assistant; Emergency Provider Emergency Medicine; PCP Nurse Practitioner Family
DX: R07.89 Other chest pain (principal); R07.9 Chest pain, unspecified; R10.9 Unspecified abdominal pain
CPT/HCPCS: 71101; 71275; 74177; 80053; 83690; 85025; 99285; Q9967

== ENCOUNTER 2024-05-09 15:53 | Outpatient (CLI) | payer MEDICAID, SELFPAY ==
--- NOTE | 2024-05-09 15:56 | MM_ITS ---
PROCEDURE INFORMATION: Exam: MG Bilateral Screening 3D Mammography Exam date and time: 05/09/2024 4:01 PM Age: 58 years old Clinical indication: Screening examination. Personal history of left breast cancer TECHNIQUE: Imaging protocol: Bilateral Screening tomosynthesis and 2D mammography including computer-aided detection (CAD) when performed. COMPARISON: 1. MG MM DIG SCREENING MAMM BI W/CAD 05/20/2022 12:55 PM 2. MG MM DIG MAMM BI DX W/CAD 05/16/2021 1:02 PM FINDINGS: MAMMOGRAPHY: Breast composition: There are scattered areas of fibroglandular density. Mass: None. Architectural distortion: No significant postoperative distortion. Calcifications: No suspicious calcifications. Asymmetric density: None. Skin thickening: None. Axillary adenopathy: None. IMPRESSION: No mammographic evidence of malignancy. Annual screening is recommended unless otherwise clinically indicated. ASSESSMENT: BI-RADS Category 1: Negative.
== END 2024-05-09 23:59 | disposition home or self-care (01) ==
LOC: RAD 15:53
PROVIDERS: PCP Nurse Practitioner Family; Visit Provider Nurse Practitioner Family
DX: Z12.31 Encounter for screening mammogram for malignant neoplasm of breast (principal)
CPT/HCPCS: 77063; 77067